=== PATIENT | female | born 1970 | race Caucasian/White ===

== ENCOUNTER 2022-02-04 09:13 | Inpatient (IN) ==
[2022-02-04] MEDS ORDERED: SUMAtriptan succinate 50 MG TABLET PO PRN (15:09)
[2022-02-04] MEDS ORDERED: Dextrose Gel 15 GM/37.5 ML TUBE PO PRN ×2 (15:58)
[2022-02-04] MEDS ORDERED: D5% in Water 1,000 ML IVC PRN (15:58)
[2022-02-04] MEDS ORDERED: *HR* Dextrose 50 % in Water (Syg) 50 ML SYRINGE IVP PRN (15:58)
[2022-02-04] MEDS: Insulin LISPRO 300 UNITS/3 ML VIAL SUBQ SCH ×2 (17:24→21:22)
[2022-02-04] MEDS: Levalbuterol Neb 0.63 MG/3 ML IH SCH ×2 (17:44→21:22)
[2022-02-04] MEDS: *HR* HYDROcodone/Acet 5/325 mg TABLET PO PRN (18:35)
[2022-02-04] MEDS: *HR* Rivaroxaban 10 MG TABLET PO SCH (18:35)
[2022-02-04] MEDS: Lithium Carbonate 300 MG CAPSULE PO SCH (18:35)
[2022-02-04] MEDS: Cefdinir 300 MG CAPSULE PO SCH (18:35)
[2022-02-04] MEDS: GuaiFENesin Liq 200 MG/10 ML UDC PO SCH ×2 (18:36→22:53)
[2022-02-04] MEDS: Budesonide/Formoterol 80/4.5 1 PUFF INH IH SCH (21:22)
[2022-02-04] MEDS: Doxycycline 100 MG CAPSULE PO SCH (21:22)
[2022-02-04] MEDS: ILOPERIDONE PO SCH (21:22)
[2022-02-05] MEDS: Levalbuterol Neb 0.63 MG/3 ML IH SCH ×4 (03:33→21:23)
[2022-02-05] MEDS: GuaiFENesin Liq 200 MG/10 ML UDC PO SCH ×3 (06:45→16:54)
[2022-02-05] MEDS: Cefdinir 300 MG CAPSULE PO SCH ×2 (06:45→16:54)
[2022-02-05 07:40] LABS: BUN/Creatinine Ratio 19 (6-26); Blood Urea Nitrogen 13 mg/dL (6-20); Carbon Dioxide 28 mEq/L (23-29); Chloride 97 mEq/L (98-107); Glucose 135 mg/dL (70-105); Osmolality,Calculated 276 (280-300); Sodium 132 mEq/L (136-145)
[2022-02-05] MEDS: amLODIPine 5 MG TABLET PO SCH (08:14)
[2022-02-05] MEDS: Lithium Carbonate 300 MG CAPSULE PO SCH ×2 (08:14→16:56)
[2022-02-05] MEDS: Doxycycline 100 MG CAPSULE PO SCH ×2 (08:14→21:48)
[2022-02-05] MEDS: Insulin LISPRO 300 UNITS/3 ML VIAL SUBQ SCH ×4 (08:15→20:18)
[2022-02-05] MEDS: Linaclotide [Linzess] 145 MCG Capsule PO SCH (08:16)
[2022-02-05] MEDS: Fluticasone Propionate Nasal 50 MCG/SPRAY BOTTLE NS SCH (08:16)
[2022-02-05] MEDS ORDERED: NON-FORMULARY MEDICATION 1 EACH EACH (Umeclidinium Bromide [Incruse Ellipta] 62.5 MCG Blst IH SCH (09:00)
[2022-02-05] MEDS: Budesonide/Formoterol 80/4.5 1 PUFF INH IH SCH ×2 (09:30→21:23)
[2022-02-05] MEDS: Tiotropium 10 INH DOSE IH SCH (09:30)
[2022-02-05] MEDS: Sennosides/Docusate Sodium TABLET PO PRN ×2 (10:45→21:48)
[2022-02-05] MEDS: *HR* HYDROcodone/Acet 5/325 mg TABLET PO PRN ×2 (10:45→16:54)
[2022-02-05 11:27] LABS: Basophils # 0.1 K/mcL (0.0-0.2); Basophils % 0.4 %; Eosinophils # 0.2 K/mcL (0.0-0.6); Eosinophils % 1.2 %; Hematocrit 38.7 % (35.3-44.9); Hemoglobin 12.6 g/dL (11.5-15.4); Lymphocytes # 2.1 K/mcL (0.6-4.6); Mean Corpuscular HGB Conc 32.6 g/dL (31.6-35.5); Mean Corpuscular Hemoglobin 31.2 pg (28.0-33.3); Mean Corpuscular Volume 95.8 fL (83.0-100.0); Monocytes # 1.3 K/mcL (0.0-1.3); Monocytes % 7.5 %; Neutrophils # 13.6 K/mcL (1.6-8.9); Platelet Count 307 K/mcL (140-400); Red Blood Count 4.04 M/mcL (3.82-4.97); Red Cell Distribution Width 13.1 % (11.5-14.5); Segmented Neutrophils % 76.9 %; White Blood Count 17.7 K/mcL (4.3-11.1)
[2022-02-05] MEDS: Multivit/Ca/Min/Fe/FA 1 TAB TABLET PO SCH (12:08)
[2022-02-05] MEDS ORDERED: Nitroglycerin 0.4 MG TAB.SUBL SL PRN (16:06)
[2022-02-05] MEDS: *HR* Rivaroxaban 10 MG TABLET PO SCH (16:53)
[2022-02-05] MEDS: ILOPERIDONE PO SCH (21:47)
[2022-02-05] MEDS: hydrOXYzine pamoate 25 MG CAPSULE PO PRN (21:48)
[2022-02-05] MEDS: Ondansetron ODT 4 MG TAB.RAPDIS SL PRN (21:49)
[2022-02-05] MEDS: QUEtiapine Fumarate 25 MG TABLET PO SCH (21:49)
[2022-02-06] MEDS: GuaiFENesin Liq 200 MG/10 ML UDC PO SCH ×4 (01:26→18:04)
[2022-02-06] MEDS: Levalbuterol Neb 0.63 MG/3 ML IH SCH ×4 (03:34→22:20)
[2022-02-06 06:53] LABS: Basophils # 0.1 K/mcL (0.0-0.2); Basophils % 0.4 %; Eosinophils # 0.4 K/mcL (0.0-0.6); Eosinophils % 2.1 %; Hematocrit 33.5 % (35.3-44.9); Hemoglobin 11.1 g/dL (11.5-15.4); Immature Granulocytes % 1.5 % (0-4); Lymphocytes % 11.7 %; Mean Corpuscular HGB Conc 33.1 g/dL (31.6-35.5); Mean Corpuscular Hemoglobin 31.1 pg (28.0-33.3); Mean Corpuscular Volume 93.8 fL (83.0-100.0); Mean Platelet Volume 9.5 fL (9.4-12.4); Monocytes # 1.4 K/mcL (0.0-1.3); Monocytes % 8.1 %; Neutrophils # 13.1 K/mcL (1.6-8.9); Platelet Count 446 K/mcL (140-400); Red Blood Count 3.57 M/mcL (3.82-4.97); Red Cell Distribution Width 12.8 % (11.5-14.5); Segmented Neutrophils % 76.2 %; White Blood Count 17.2 K/mcL (4.3-11.1)
[2022-02-06] MEDS: Cefdinir 300 MG CAPSULE PO SCH ×2 (06:58→18:04)
[2022-02-06 07:15] LABS: BUN/Creatinine Ratio 17 (6-26); Blood Urea Nitrogen 11 mg/dL (6-20); Calcium 9.6 mg/dL (8.6-10.3); Carbon Dioxide 28 mEq/L (23-29); Chloride 96 mEq/L (98-107); Glucose 164 mg/dL (70-105); Osmolality,Calculated 275 (280-300); Potassium 3.9 mEq/L (3.5-5.1); Sodium 131 mEq/L (136-145)
[2022-02-06] MEDS: Lithium Carbonate 300 MG CAPSULE PO SCH ×2 (08:53→16:33)
[2022-02-06] MEDS: Doxycycline 100 MG CAPSULE PO SCH ×2 (08:53→20:59)
[2022-02-06] MEDS: amLODIPine 5 MG TABLET PO SCH (08:53)
[2022-02-06] MEDS: Fluticasone Propionate Nasal 50 MCG/SPRAY BOTTLE NS SCH (08:53)
[2022-02-06] MEDS: Linaclotide [Linzess] 145 MCG Capsule PO SCH (08:54)
[2022-02-06] MEDS: Insulin LISPRO 300 UNITS/3 ML VIAL SUBQ SCH ×4 (08:55→20:59)
[2022-02-06] MEDS: Tiotropium 10 INH DOSE IH SCH (09:26)
[2022-02-06] MEDS: Budesonide/Formoterol 80/4.5 1 PUFF INH IH SCH ×2 (09:26→22:20)
[2022-02-06] MEDS: *HR* HYDROcodone/Acet 5/325 mg TABLET PO PRN ×2 (10:51→20:58)
[2022-02-06] MEDS: Ondansetron ODT 4 MG TAB.RAPDIS SL PRN (10:55)
[2022-02-06] MEDS: Multivit/Ca/Min/Fe/FA 1 TAB TABLET PO SCH (12:16)
[2022-02-06] MEDS: *HR* Rivaroxaban 10 MG TABLET PO SCH (16:33)
[2022-02-06] MEDS: QUEtiapine Fumarate 25 MG TABLET PO SCH (20:59)
[2022-02-06] MEDS: hydrOXYzine pamoate 25 MG CAPSULE PO PRN (21:03)
[2022-02-06] MEDS: ILOPERIDONE PO SCH (21:03)
[2022-02-06] MEDS: Sennosides/Docusate Sodium TABLET PO PRN (21:03)
[2022-02-07] MEDS: GuaiFENesin Liq 200 MG/10 ML UDC PO SCH ×5 (01:26→22:31)
[2022-02-07] MEDS: Levalbuterol Neb 0.63 MG/3 ML IH SCH ×4 (04:38→21:02)
[2022-02-07] MEDS: Cefdinir 300 MG CAPSULE PO SCH ×2 (05:26→16:53)
[2022-02-07] MEDS: Insulin LISPRO 300 UNITS/3 ML VIAL SUBQ SCH ×4 (08:16→22:33)
[2022-02-07] MEDS: amLODIPine 5 MG TABLET PO SCH (09:02)
[2022-02-07] MEDS: Lithium Carbonate 300 MG CAPSULE PO SCH ×2 (09:03→16:53)
[2022-02-07] MEDS: Doxycycline 100 MG CAPSULE PO SCH ×2 (09:03→22:32)
[2022-02-07] MEDS: Budesonide/Formoterol 80/4.5 1 PUFF INH IH SCH ×2 (09:16→21:02)
[2022-02-07] MEDS: Tiotropium 10 INH DOSE IH SCH (09:16)
[2022-02-07] MEDS: Linaclotide [Linzess] 145 MCG Capsule PO SCH (10:04)
[2022-02-07] MEDS: Fluticasone Propionate Nasal 50 MCG/SPRAY BOTTLE NS SCH (10:34)
[2022-02-07] MEDS ORDERED: Bisacodyl 10 MG RECTAL SUPPOSITORY RC PRN (11:29)
[2022-02-07] MEDS: *HR* HYDROcodone/Acet 5/325 mg TABLET PO PRN (12:05)
[2022-02-07] MEDS: Multivit/Ca/Min/Fe/FA 1 TAB TABLET PO SCH (12:06)
[2022-02-07] MEDS: Ondansetron ODT 4 MG TAB.RAPDIS SL PRN (16:03)
[2022-02-07] MEDS: *HR* Rivaroxaban 10 MG TABLET PO SCH (16:52)
[2022-02-07] MEDS: QUEtiapine Fumarate 25 MG TABLET PO SCH (22:32)
[2022-02-07] MEDS: ILOPERIDONE PO SCH (22:33)
[2022-02-08] MEDS: hydrOXYzine pamoate 25 MG CAPSULE PO PRN ×2 (01:18→20:54)
[2022-02-08] MEDS: Sennosides/Docusate Sodium TABLET PO PRN (01:18)
[2022-02-08] MEDS: *HR* HYDROcodone/Acet 5/325 mg TABLET PO PRN ×2 (01:18→20:46)
[2022-02-08] MEDS: Levalbuterol Neb 0.63 MG/3 ML IH SCH ×5 (04:23→22:57)
[2022-02-08] MEDS: GuaiFENesin Liq 200 MG/10 ML UDC PO SCH ×3 (06:42→17:35)
[2022-02-08] MEDS: Cefdinir 300 MG CAPSULE PO SCH ×2 (06:42→17:35)
[2022-02-08] MEDS: Insulin LISPRO 300 UNITS/3 ML VIAL SUBQ SCH ×4 (07:59→20:51)
[2022-02-08] MEDS: Doxycycline 100 MG CAPSULE PO SCH ×2 (08:33→20:46)
[2022-02-08] MEDS: amLODIPine 5 MG TABLET PO SCH (08:33)
[2022-02-08] MEDS: Linaclotide [Linzess] 145 MCG Capsule PO SCH (08:36)
[2022-02-08] MEDS: Fluticasone Propionate Nasal 50 MCG/SPRAY BOTTLE NS SCH (08:38)
[2022-02-08] MEDS: Lithium Carbonate 300 MG CAPSULE PO SCH ×2 (08:38→17:37)
[2022-02-08] MEDS: Tiotropium 10 INH DOSE IH SCH (09:12)
[2022-02-08] MEDS: Budesonide/Formoterol 80/4.5 1 PUFF INH IH SCH ×3 (09:13→23:16)
[2022-02-08] MEDS: Multivit/Ca/Min/Fe/FA 1 TAB TABLET PO SCH (11:10)
[2022-02-08] MEDS: *HR* Rivaroxaban 10 MG TABLET PO SCH (17:35)
[2022-02-08] MEDS: QUEtiapine Fumarate 25 MG TABLET PO SCH (20:45)
[2022-02-08] MEDS: ILOPERIDONE PO SCH (20:50)
[2022-02-09] MEDS: GuaiFENesin Liq 200 MG/10 ML UDC PO SCH ×4 (00:56→17:27)
[2022-02-09] MEDS: Levalbuterol Neb 0.63 MG/3 ML IH SCH ×4 (04:25→20:33)
[2022-02-09] MEDS: Insulin LISPRO 300 UNITS/3 ML VIAL SUBQ SCH ×4 (08:13→20:47)
[2022-02-09 08:46] LABS: Basophils # 0.1 K/mcL (0.0-0.2); Basophils % 0.9 %; Eosinophils # 0.5 K/mcL (0.0-0.6); Eosinophils % 4.3 %; Hematocrit 32.6 % (35.3-44.9); Hemoglobin 10.3 g/dL (11.5-15.4); Immature Granulocytes % 0.8 % (0-4); Lymphocytes % 19.5 %; Mean Corpuscular HGB Conc 31.6 g/dL (31.6-35.5); Mean Corpuscular Hemoglobin 30.7 pg (28.0-33.3); Mean Corpuscular Volume 97.3 fL (83.0-100.0); Mean Platelet Volume 9.8 fL (9.4-12.4); Monocytes # 1.2 K/mcL (0.0-1.3); Monocytes % 10.8 %; Platelet Count 509 K/mcL (140-400); Red Blood Count 3.35 M/mcL (3.82-4.97); Red Cell Distribution Width 12.9 % (11.5-14.5); Segmented Neutrophils % 63.7 %; White Blood Count 11.5 K/mcL (4.3-11.1)
[2022-02-09] MEDS: amLODIPine 5 MG TABLET PO SCH (08:57)
[2022-02-09] MEDS: Fluticasone Propionate Nasal 50 MCG/SPRAY BOTTLE NS SCH (08:57)
[2022-02-09] MEDS: Linaclotide [Linzess] 145 MCG Capsule PO SCH (08:58)
[2022-02-09] MEDS: Lithium Carbonate 300 MG CAPSULE PO SCH ×2 (09:01→17:29)
[2022-02-09 09:02] LABS: BUN/Creatinine Ratio 11 (6-26); Blood Urea Nitrogen 8 mg/dL (6-20); Calcium 9.4 mg/dL (8.6-10.3); Carbon Dioxide 27 mEq/L (23-29); Chloride 98 mEq/L (98-107); Glucose 130 mg/dL (70-105); Osmolality,Calculated 274 (280-300); Potassium 4.1 mEq/L (3.5-5.1); Sodium 132 mEq/L (136-145)
[2022-02-09 09:08] LABS: Lymphocytes # 2.2 K/mcL (0.6-4.6); Neutrophils # 7.3 K/mcL (1.6-8.9)
[2022-02-09] MEDS: Tiotropium 10 INH DOSE IH SCH (09:10)
[2022-02-09] MEDS: Budesonide/Formoterol 80/4.5 1 PUFF INH IH SCH ×2 (09:10→20:33)
[2022-02-09] MEDS: Multivit/Ca/Min/Fe/FA 1 TAB TABLET PO SCH (11:42)
[2022-02-09] MEDS: *HR* HYDROcodone/Acet 5/325 mg TABLET PO PRN (14:29)
[2022-02-09] MEDS: *HR* Rivaroxaban 10 MG TABLET PO SCH (17:27)
[2022-02-09] MEDS: ILOPERIDONE PO SCH (21:03)
[2022-02-09] MEDS: QUEtiapine Fumarate 25 MG TABLET PO SCH (21:03)
[2022-02-09] MEDS: hydrOXYzine pamoate 25 MG CAPSULE PO PRN (21:06)
[2022-02-10] MEDS: GuaiFENesin Liq 200 MG/10 ML UDC PO SCH ×5 (00:14→23:27)
[2022-02-10] MEDS: *HR* HYDROcodone/Acet 5/325 mg TABLET PO PRN ×2 (02:58→12:00)
[2022-02-10] MEDS: Levalbuterol Neb 0.63 MG/3 ML IH SCH ×4 (03:27→21:13)
[2022-02-10] MEDS: Lithium Carbonate 300 MG CAPSULE PO SCH ×2 (07:56→17:05)
[2022-02-10] MEDS: amLODIPine 5 MG TABLET PO SCH (07:56)
[2022-02-10] MEDS: Fluticasone Propionate Nasal 50 MCG/SPRAY BOTTLE NS SCH (07:57)
[2022-02-10] MEDS: Linaclotide [Linzess] 145 MCG Capsule PO SCH (07:57)
[2022-02-10] MEDS: Insulin LISPRO 300 UNITS/3 ML VIAL SUBQ SCH ×4 (07:57→20:41)
[2022-02-10] MEDS: Tiotropium 10 INH DOSE IH SCH (09:19)
[2022-02-10] MEDS: Budesonide/Formoterol 80/4.5 1 PUFF INH IH SCH ×2 (09:19→21:13)
[2022-02-10] MEDS: Multivit/Ca/Min/Fe/FA 1 TAB TABLET PO SCH (12:00)
[2022-02-10] MEDS: *HR* Rivaroxaban 10 MG TABLET PO SCH (17:04)
[2022-02-10] MEDS: QUEtiapine Fumarate 25 MG TABLET PO SCH (20:40)
[2022-02-10] MEDS: ILOPERIDONE PO SCH (20:41)
[2022-02-11] MEDS: *HR* HYDROcodone/Acet 5/325 mg TABLET PO PRN ×2 (03:18→17:13)
[2022-02-11] MEDS: Levalbuterol Neb 0.63 MG/3 ML IH SCH ×4 (04:05→20:53)
[2022-02-11] MEDS: GuaiFENesin Liq 200 MG/10 ML UDC PO SCH ×3 (06:22→17:14)
[2022-02-11 07:07] LABS: Hematocrit 30.8 % (35.3-44.9); Hemoglobin 9.7 g/dL (11.5-15.4); Mean Corpuscular HGB Conc 31.5 g/dL (31.6-35.5); Mean Corpuscular Hemoglobin 30.6 pg (28.0-33.3); Mean Corpuscular Volume 97.2 fL (83.0-100.0); Mean Platelet Volume 9.2 fL (9.4-12.4); Platelet Count 495 K/mcL (140-400); Red Blood Count 3.17 M/mcL (3.82-4.97); Red Cell Distribution Width 12.7 % (11.5-14.5); White Blood Count 7.8 K/mcL (4.3-11.1)
[2022-02-11 07:45] LABS: BUN/Creatinine Ratio 9 (6-26); Blood Urea Nitrogen 7 mg/dL (6-20); Calcium 9.2 mg/dL (8.6-10.3); Carbon Dioxide 27 mEq/L (23-29); Chloride 100 mEq/L (98-107); Glucose 140 mg/dL (70-105); Potassium 3.7 mEq/L (3.5-5.1)
[2022-02-11 08:08] LABS: Osmolality,Calculated 278 (280-300); Sodium 134 mEq/L (136-145)
[2022-02-11] MEDS: amLODIPine 5 MG TABLET PO SCH (09:16)
[2022-02-11] MEDS: Fluticasone Propionate Nasal 50 MCG/SPRAY BOTTLE NS SCH (09:16)
[2022-02-11] MEDS: Budesonide/Formoterol 80/4.5 1 PUFF INH IH SCH ×2 (09:17→20:53)
[2022-02-11] MEDS: Tiotropium 10 INH DOSE IH SCH (09:17)
[2022-02-11] MEDS: Insulin LISPRO 300 UNITS/3 ML VIAL SUBQ SCH ×4 (09:17→20:03)
[2022-02-11] MEDS: Lithium Carbonate 300 MG CAPSULE PO SCH ×2 (09:17→17:13)
[2022-02-11] MEDS: Linaclotide [Linzess] 145 MCG Capsule PO SCH (09:43)
[2022-02-11] MEDS: Multivit/Ca/Min/Fe/FA 1 TAB TABLET PO SCH (12:00)
[2022-02-11] MEDS: *HR* Rivaroxaban 10 MG TABLET PO SCH (17:19)
[2022-02-11] MEDS: QUEtiapine Fumarate 25 MG TABLET PO SCH (20:03)
[2022-02-11] MEDS: ILOPERIDONE PO SCH (20:03)
[2022-02-12] MEDS: GuaiFENesin Liq 200 MG/10 ML UDC PO SCH ×5 (00:20→17:50)
[2022-02-12] MEDS: Levalbuterol Neb 0.63 MG/3 ML IH SCH ×4 (04:35→21:29)
[2022-02-12] MEDS: Insulin LISPRO 300 UNITS/3 ML VIAL SUBQ SCH ×4 (07:41→20:20)
[2022-02-12] MEDS: amLODIPine 5 MG TABLET PO SCH (08:02)
[2022-02-12] MEDS: Fluticasone Propionate Nasal 50 MCG/SPRAY BOTTLE NS SCH (08:05)
[2022-02-12] MEDS: Lithium Carbonate 300 MG CAPSULE PO SCH ×2 (08:05→17:36)
[2022-02-12] MEDS: Linaclotide [Linzess] 145 MCG Capsule PO SCH (08:05)
[2022-02-12] MEDS: Budesonide/Formoterol 80/4.5 1 PUFF INH IH SCH ×2 (09:26→21:29)
[2022-02-12] MEDS: Tiotropium 10 INH DOSE IH SCH (09:27)
[2022-02-12] MEDS: Multivit/Ca/Min/Fe/FA 1 TAB TABLET PO SCH (12:14)
[2022-02-12] MEDS ORDERED: polyethylene glycoL 3350 17 GM POWD.PACK PO PRN (12:37)
[2022-02-12] MEDS: *HR* Rivaroxaban 10 MG TABLET PO SCH (17:36)
[2022-02-12] MEDS: *HR* HYDROcodone/Acet 5/325 mg TABLET PO PRN (17:41)
[2022-02-12] MEDS: QUEtiapine Fumarate 25 MG TABLET PO SCH (20:17)
[2022-02-12] MEDS: ILOPERIDONE PO SCH (20:18)
[2022-02-13] MEDS: GuaiFENesin Liq 200 MG/10 ML UDC PO SCH ×4 (00:05→17:45)
[2022-02-13] MEDS: Levalbuterol Neb 0.63 MG/3 ML IH SCH ×4 (03:40→22:02)
[2022-02-13] MEDS: amLODIPine 5 MG TABLET PO SCH (08:17)
[2022-02-13] MEDS: Fluticasone Propionate Nasal 50 MCG/SPRAY BOTTLE NS SCH (08:19)
[2022-02-13] MEDS: Linaclotide [Linzess] 145 MCG Capsule PO SCH (08:19)
[2022-02-13] MEDS: Lithium Carbonate 300 MG CAPSULE PO SCH ×2 (08:19→16:56)
[2022-02-13] MEDS: Insulin LISPRO 300 UNITS/3 ML VIAL SUBQ SCH ×4 (08:26→21:15)
[2022-02-13] MEDS: Budesonide/Formoterol 80/4.5 1 PUFF INH IH SCH ×2 (09:39→21:59)
[2022-02-13] MEDS: Tiotropium 10 INH DOSE IH SCH (09:39)
[2022-02-13] MEDS: Multivit/Ca/Min/Fe/FA 1 TAB TABLET PO SCH (12:32)
[2022-02-13] MEDS: *HR* Rivaroxaban 10 MG TABLET PO SCH (16:56)
[2022-02-13] MEDS: ILOPERIDONE PO SCH (21:14)
[2022-02-13] MEDS: QUEtiapine Fumarate 25 MG TABLET PO SCH (21:15)
[2022-02-14] MEDS: GuaiFENesin Liq 200 MG/10 ML UDC PO SCH ×5 (00:02→23:44)
[2022-02-14] MEDS: Levalbuterol Neb 0.63 MG/3 ML IH SCH ×4 (04:16→21:28)
[2022-02-14] MEDS: Lithium Carbonate 300 MG CAPSULE PO SCH ×2 (07:44→17:46)
[2022-02-14] MEDS: *HR* HYDROcodone/Acet 5/325 mg TABLET PO PRN ×2 (07:44→17:48)
[2022-02-14] MEDS: amLODIPine 5 MG TABLET PO SCH (07:44)
[2022-02-14] MEDS: Fluticasone Propionate Nasal 50 MCG/SPRAY BOTTLE NS SCH (07:45)
[2022-02-14] MEDS: Insulin LISPRO 300 UNITS/3 ML VIAL SUBQ SCH ×4 (07:45→20:46)
[2022-02-14] MEDS: Linaclotide [Linzess] 145 MCG Capsule PO SCH (07:46)
[2022-02-14] MEDS: Tiotropium 10 INH DOSE IH SCH (09:17)
[2022-02-14] MEDS: Budesonide/Formoterol 80/4.5 1 PUFF INH IH SCH ×2 (09:20→21:28)
[2022-02-14] MEDS: Multivit/Ca/Min/Fe/FA 1 TAB TABLET PO SCH (12:57)
[2022-02-14] MEDS: *HR* Rivaroxaban 10 MG TABLET PO SCH (17:46)
[2022-02-14 20:32] VITALS: TEMP 97.9
[2022-02-14] MEDS: ILOPERIDONE PO SCH (20:50)
[2022-02-14] MEDS: QUEtiapine Fumarate 25 MG TABLET PO SCH (20:55)
[2022-02-15] MEDS: Levalbuterol Neb 0.63 MG/3 ML IH SCH ×2 (05:25→09:49)
[2022-02-15] MEDS: GuaiFENesin Liq 200 MG/10 ML UDC PO SCH (05:55)
[2022-02-15 07:44] VITALS: BP 123/84; PULSE 83
[2022-02-15] MEDS: amLODIPine 5 MG TABLET PO SCH (08:37)
[2022-02-15] MEDS: Fluticasone Propionate Nasal 50 MCG/SPRAY BOTTLE NS SCH (08:37)
[2022-02-15] MEDS: Insulin LISPRO 300 UNITS/3 ML VIAL SUBQ SCH (08:38)
[2022-02-15] MEDS: Lithium Carbonate 300 MG CAPSULE PO SCH (08:38)
[2022-02-15] MEDS: Linaclotide [Linzess] 145 MCG Capsule PO SCH (09:15)
[2022-02-15] MEDS: *HR* HYDROcodone/Acet 5/325 mg TABLET PO PRN (09:42)
[2022-02-15] MEDS: Budesonide/Formoterol 80/4.5 1 PUFF INH IH SCH (09:49)
[2022-02-15] MEDS: Tiotropium 10 INH DOSE IH SCH (09:49)
[2022-02-15 09:51] VITALS: RESP 18; O2SAT 98
== END 2022-02-15 11:57 | disposition home health service (06) | DRG 871 ==
LOC: INPPIK 14:07
PROVIDERS: ADMIT Family Medicine; ATTEND Family Medicine